=== PATIENT | female | born 1985 | race Caucasian/White ===

== ENCOUNTER 2016-07-11 22:37 | Emergency (ER) | payer SELFPAY ==
[~2016-07-11] VITALS: Ht 162.6 cm; Wt 83.0 kg
[~2016-07-11 22:37] MED LIST: ALBU6.7H INH; BACT800T5 PO
[2016-07-11 22:38] VITALS: BP 136/86; PULSE 102; RESP 16; TEMP 98.2; O2SAT 96
== END 2016-07-12 00:49 | disposition left against medical advice (07) ==
LOC: NED 22:37
DX: R05 Cough (principal)
CPT/HCPCS: 99281

== ENCOUNTER 2017-03-27 15:25 | Emergency (ER) | payer SELFPAY ==
[~2017-03-27] VITALS: Ht 160 cm; Wt 78.0 kg
[2017-03-27 15:26] VITALS: BP 144/76; PULSE 93; RESP 20; TEMP 98.1; O2SAT 98
--- NOTE | 2017-03-27 15:47 | PD ---
HPI Chief Complaint: Skin Problem Time Seen by Provider: 15:45 Travel History International Travel<30 days: No Contact w/Intl Traveler<30days: No Traveled to known affect area: No History of Present Illness HPI 31 year-old female presents to [facility] for a second opinion on her PPD test. Patient had this 1 week ago on her left forearm. She is concerned because there is still a reddened [place] where the test was performed. She was told that it was negative. Denies any fever or chills. No other reaction. She has no other symptoms to report. History Social History Alcohol Use: No Tobacco Use: Yes (06/12 ppd) Allergies-Medications (Allergen,Severity, Reaction): Coded Allergies: aspirin (Unverified Allergy, Severe, NAUSEA, 03/27/17) shellfish derived (Unverified Allergy, Intermediate, rash, 03/27/17) acetaminophen (Unverified Allergy, Unknown, 03/27/17) hydrocodone (Unverified Allergy, Unknown, 03/27/17) Reported Meds & Prescriptions Reported Meds & Active Scripts Active Proventil Hfa 6.7 GM Inh (Albuterol Sulfate) 90 Mcg/Act Aer 1 Puff INH Q4H PRN Bactrim DS (Sulfamethoxazole-Trimethoprim) 800-160 Mg Tab 1 Tab PO BID Review of Systems Except as stated in HPI: all other systems reviewed are Neg Physical Exam Narrative GENERAL: Well-nourished female patient, in no acute distress. SKIN: Focused skin assessment warm/dry. There is a 1 cm in diameter blanchable erythematous area on the anterior left forearm. There is no induration. No fluctuation. HEAD: Atraumatic. Normocephalic. EYES: Pupils equal and round. No scleral icterus. No injection or drainage. ENT: No nasal bleeding or discharge. Mucous membranes pink and moist. NECK: Trachea midline. No JVD. CARDIOVASCULAR: Regular rate and rhythm. No murmur appreciated. RESPIRATORY: No accessory muscle use. Clear to auscultation. Breath sounds equal bilaterally. MUSCULOSKELETAL: No obvious deformities. No clubbing. No cyanosis. No edema. NEUROLOGICAL: Awake and alert. No obvious cranial nerve deficits. Motor grossly within normal limits. Normal speech. PSYCHIATRIC: Appropriate mood and affect; insight and judgment normal. Data Data Last Documented VS Vital Signs Date Time Temp Pulse Resp B/P (MAP) Pulse Ox O2 Delivery O2 Flow Rate FiO2 03/27/17 15:26 98.1 93 20 144/76 (98) 98 Room Air MDM Medical Screen Exam Complete: Yes Emergency Medical Condition: No Differential Diagnosis tb test site redness Narrative Course 31 year-old female presents to emergency department for second opinion of her PPD testing. There is no induration. There is a reddened [place] it is blanchable. This is a normal appearance. At this time there are no urgent or emergent needs for medical intervention identified. A medical screening exam was performed: At the time of evaluation the presenting medical condition was determined not to be of an emergent nature. The patient was given the option of receiving additional care, but declined. Patient was given options for additional community resources from which to obtain care. The Patient Has Been advised to seek medical attention for their presenting complaint. The patient has been advised to return to the ER at any time if an emergent condition develops. Primary Impression: Encounter for medical screening examination Condition: Stable Ebonie Zuleta Mar 27, 2017 15:47
== END 2017-03-27 15:59 | disposition left against medical advice (07) ==
LOC: NEPK 15:25
DX: Z09 Encounter for follow-up examination after completed treatment for conditions other than malignant neoplasm (principal)
CPT/HCPCS: 99281

== ENCOUNTER 2017-05-28 21:48 | Emergency (ER) | payer SELFPAY ==
[~2017-05-28] VITALS: Ht 160 cm; Wt 77.3 kg
[2017-05-28 21:52] VITALS: BP 152/76; PULSE 124; RESP 16; TEMP 99.4; O2SAT 98
[2017-05-30] MEDS ORDERED: LURA20TA PO (10:50)
[2017-05-30] MEDS ORDERED: OSEL75 PO (11:27)
[2017-05-30] MEDS ORDERED: PRED-503 PO (11:27)
[2017-05-30] MEDS ORDERED: VENTAER INH (11:27)
[2017-05-30] MEDS ORDERED: BENZ100 PO (11:35)
--- NOTE | 2017-06-02 11:58 | PD ---
Physical Exam Date Seen by Provider: May 28, 2017 Time Seen by Provider: 21:56 Narrative 31-year-old female presents to the emergency department for evaluation of cold symptoms that started last night. The symptoms include productive cough, chest pain with coughing, dizziness, headache. She denies any fevers. Patient is evaluated in triage and is waiting a medical bed for further evaluation and disposition. [facility] Medical Record Reviewed: Yes Supervised Visit with ALLISON: No Narrative Course 31-year-old female presents to the emergency department for evaluation of cold symptoms that started last night. Patient is initially seen in triage. She is awaiting a medical bed for further evaluation and disposition. Patient left AGAINST MEDICAL ADVICE before being moved to medical bed. Diagnosis Primary Impression: Left against medical advice Additional Impression: Cough Disposition: 07 AGAINST MEDICAL ADVICE Daisy Yuan Jun 02, 2017 11:58
== END 2017-05-29 00:42 | disposition left against medical advice (07) ==
LOC: NED 21:48
DX: R05 Cough (principal)
CPT/HCPCS: 99281

== ENCOUNTER 2017-05-30 10:12 | Emergency (ER) | payer SELFPAY ==
[~2017-05-30] VITALS: Ht 160 cm; Wt 83.0 kg
[2017-05-30 10:24] VITALS: BP 140/65; PULSE 119; RESP 16; TEMP 98.2; O2SAT 98
[2017-05-30] MEDS ORDERED: LURA20TA PO (10:50)
[2017-05-30] MEDS ORDERED: IBUPROFEN 800 MG TAB PO ONE (11:00)
[2017-05-30] MEDS ORDERED: predniSONE 20 MG TAB PO ONE (11:00)
[2017-05-30] MEDS ORDERED: RESP: ALBUTEROL 2.5 MG/3 ML NEB (SCH) INH ONE (11:00)
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
[2017-05-30] MEDS ORDERED: OSEL75 PO (11:27)
[2017-05-30] MEDS ORDERED: PRED-503 PO (11:27)
[2017-05-30] MEDS ORDERED: VENTAER INH (11:27)
[2017-05-30] MEDS ORDERED: BENZ100 PO (11:35)
--- NOTE | 2017-05-30 12:01 | RADRPT ---
EXAM DATE/TIME: 05/30/2017 11:38 [facility] COMPARISON: No previous studies available for comparison. INDICATIONS : Cough MEDICAL HISTORY : Asthma SURGICAL HISTORY : None. ENCOUNTER: Initial ACUITY: 3 days PAIN SCORE: 1/10 LOCATION: Bilateral chest FINDINGS: A single view of the chest demonstrates the lungs to be symmetrically aerated without evidence of mas s, infiltrate or effusion. The cardiomediastinal contours are unremarkable. Osseous structures are intact. CONCLUSION: No acute disease. Rony Santoyo MD on May 30, 2017 at 11:59 Board Certified Radiologist. This report was verified electronically.
== END 2017-05-30 12:18 | disposition home or self-care (01) ==
LOC: PHEFT 10:12
DX: J10.1 Influenza due to other identified influenza virus with other respiratory manifestations (principal); J45.901 Unspecified asthma with (acute) exacerbation; Z88.0 Allergy status to penicillin
CPT/HCPCS: 71010; 87804; 94664; 99284; J7512; J7613

== ENCOUNTER 2017-07-20 09:09 | Emergency (ER) | payer SELFPAY ==
[~2017-07-20 09:09] MED LIST changes: -ALBU6.7H INH; -BACT800T5 PO; +BENZ100 PO; +LURA20TA PO; +OSEL75 PO; +PRED-503 PO; +VENTAER INH
[2017-07-20 09:11] VITALS: BP 112/64; PULSE 86; RESP 22; TEMP 98.1; O2SAT 99
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
[2017-07-20 10:03] LABS: BACTERIA, URINE MANY /hpf; BILIRUBIN, URINE NEG (NEG); BLOOD, URINE SMALL (NEG); GLUCOSE,URINE NEG (NEG); KETONE, URINE NEG (NEG); MUCUS URINE MOD /lpf (OCC); NITRITE,URINE POS (NEG); PH, URINE 5.5 (5.0-8.5); SQUAMOUS EPITHELIAL CELL URINE 49 /hpf (0-5); TRICHOMONAS, URINE RARE; URINE COLOR YELLOW (YELLW/STRAW); URINE LEUKOCYTE ESTERASE LARGE (NEG)
[2017-07-20] MEDS ORDERED: MACR100C2 PO (10:31)
== END 2017-07-20 11:11 | disposition home or self-care (01) ==
LOC: NEPE 09:09
DX: N39.0 Urinary tract infection, site not specified (principal); B96.20 Unspecified Escherichia coli [E. coli] as the cause of diseases classified elsewhere; F90.9 Attention-deficit hyperactivity disorder, unspecified type; J45.909 Unspecified asthma, uncomplicated; D64.9 Anemia, unspecified; F31.9 Bipolar disorder, unspecified; Z79.899 Other long term (current) drug therapy; Z79.51 Long term (current) use of inhaled steroids; Z88.0 Allergy status to penicillin
CPT/HCPCS: 81001; 84703; 87086; 87186; 99283

== ENCOUNTER 2017-08-27 12:11 | Emergency (ER) | payer OTHER ==
[~2017-08-27 12:11] MED LIST changes: +MACR100C2 PO
[2017-08-27 12:42] VITALS: BP 124/75; PULSE 86; RESP 16; TEMP 97.7; O2SAT 100
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
[2017-08-27] MEDS ORDERED: ORPHENADRINE CITRATE 100 MG SUSTAINED RELEASE TAB PO ONE (15:00)
[2017-08-27] MEDS ORDERED: IBUPROFEN 800 MG TAB PO ONE (15:00)
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
[2017-08-27] MEDS ORDERED: ORPH100T2 PO (15:48)
[2017-08-27] MEDS ORDERED: IBUP-232 PO (15:48)
== END 2017-08-27 16:13 | disposition home or self-care (01) ==
LOC: NETRI 12:11 → NEPD 16:13
DX: S80.01XA Contusion of right knee, initial encounter (principal); S80.211A Abrasion, right knee, initial encounter; S16.1XXA Strain of muscle, fascia and tendon at neck level, initial encounter; R51 Headache; V89.2XXA Person injured in unspecified motor-vehicle accident, traffic, initial encounter; F90.9 Attention-deficit hyperactivity disorder, unspecified type; J45.909 Unspecified asthma, uncomplicated; F31.9 Bipolar disorder, unspecified; F17.200 Nicotine dependence, unspecified, uncomplicated
CPT/HCPCS: 70450; 73564; 99284; E0113; L1830